=== PATIENT | female | born 2000 | race African-American/Black ===

== ENCOUNTER 2021-04-06 09:00 | Emergency (ER) | payer OTHER ==
[~2021-04-06] VITALS: Ht 165.1 cm; Wt 86.2 kg
[~2021-04-06 09:00] MED LIST: ALBUTEROL2.5 MG/0.1; ATIVAN2 MG PO
[2021-04-06 09:02] VITALS: BP 134/88
== END 2021-04-06 11:41 | disposition home or self-care (01) ==
LOC: ER 09:00
PROVIDERS: Emergency Medicine
DX: U07.1 COVID-19 (principal); J45.909 Unspecified asthma, uncomplicated; Z90.89 Acquired absence of other organs; Z90.49 Acquired absence of other specified parts of digestive tract; Z79.51 Long term (current) use of inhaled steroids; Z79.899 Other long term (current) drug therapy; Z86.16 Personal history of COVID-19